=== PATIENT | male | born 1955 | race Caucasian/White ===

== ENCOUNTER 2023-02-25 04:13 | Emergency (ER) | payer OTHER ==
[2023-02-25] MEDS ORDERED: Sodium Chloride 0.9% 10 ML Syringe FLUSH PRN (04:22)
[2023-02-25] MEDS ORDERED: Ondansetron 4 MG/2 ML SDV IVPUSH ONE (04:51)
[2023-02-25 04:52] LABS: BASOPHILS PERCENT AUTO 0.5 % (0.3-3.8); EOSINOPHILS ABSOLUTE AUTO 0.2 x10-3/uL (0.0-0.6); EOSINOPHILS PERCENT AUTO 3.5 % (0.1-6.8); HEMOGLOBIN 15.8 g/dL (12.9-17.7); LYMPHOCYTES ABSOLUTE AUTO 1.8 x10-3/uL (0.5-4.5); LYMPHOCYTES PERCENT AUTO 27.5 % (15.8-45.3); MEAN CORPUSCULAR HGB CONC 33.6 g/dL (28.7-35.3); MEAN CORPUSCULAR VOLUME 92.2 fL (80.8-98.7); MEAN PLATELET VOLUME 6.9 fL (6.7-11.0); MONOCYTES ABSOLUTE AUTO 0.8 x10-3/uL (0.0-1.2); MONOCYTES PERCENT AUTO 11.7 % (5.5-15.2); NEUTROPHILS ABSOLUTE AUTO 3.7 x10-3/uL (1.7-6.9); NEUTROPHILS PERCENT AUTO 56.8 % (40.3-71.8); PLATELET COUNT,PLT 168 x10(3)uL (117-477); RED CELL DISTRIBUTION WIDTH 16.5 % (12.4-15.0); WHITE BLOOD CELL COUNT,WBC 6.5 x10-3/uL (3.2-10.1)
[2023-02-25 04:56] LABS: BLOOD UREA NITROGEN,BUN 16 mg/dL (7-18); BUN/CREATININE RATIO 12.3 (9-20); CALCIUM 8.7 mg/dL (8.6-10.2); CARBON DIOXIDE,CO2 29 mmol/L (21-32); CHLORIDE,CL 104 mmol/L (100-110); CREATININE 1.3 mg/dL (0.70-1.30); ESTIMATED GFR 60 mL/min (>60); GLUCOSE RANDOM 139 mg/dL (80-116); POTASSIUM,K 3.5 mmol/L (3.5-5.3); SODIUM,NA 139 mmol/L (135-145)
[2023-02-25 05:02] LABS: A/G RATIO 1.1; ALANINE AMINOTRANSFERASE,ALT 43 U/L (12-36); ALBUMIN 3.8 g/dL (3.2-4.6); ALKALINE PHOSPHATASE 107 IU/L (56-112); ASPARTATE AMNIOTRANSFERASE,AST 25 IU/L (5-25); MAGNESIUM 1.8 mg/dL (1.8-2.5); PROTEIN TOTAL,TP 7.2 g/dL (6.0-8.0)
[2023-02-25 05:04] LABS: C-REACTIVE PROTEIN 0.91 mg/dL (<0.33); TROPONIN I 14.3 pg/mL (4.0-60.3)
[2023-02-25] MEDS ORDERED: Sodium Chloride 0.9% 1,000 ML IV SCH (05:15)
[2023-02-25] MEDS ORDERED: Metoclopramide 10 MG/2 ML SDV IVPUSH ONE (05:32)
[2023-02-25] MEDS ORDERED: niCARdipine HCl 25 MG in Sodium Chloride 0.9% 240 ML IV SCH (06:00)
== END 2023-02-25 05:55 ==
LOC: FB.ED 04:13
DX: I16.0 Hypertensive urgency (principal); R11.2 Nausea with vomiting, unspecified; I10 Essential (primary) hypertension; E11.9 Type 2 diabetes mellitus without complications
CPT/HCPCS: 36415; 70450; 80053; 83735; 84484; 85025; 86140; 93005; 93010; 96374; 96375; 99285; 99285-25; J2405; J2765; J7030; J7050